=== PATIENT | female | born 1990 | race Caucasian/White ===

== ENCOUNTER → 2018-08-22 | Outpatient (CLI) | payer OTHER ==
[~2018-08-22] MED LIST: BUSP15TA; Benadryl IV; CARB25PO PO; CEFT1VIA; CORTISOL MANAGER PO; ESCI20TA10 PO; ESCI5TAB PO; Ketamine PO; LIOT5TAB3 PO; LORA1TAB PO; Magnesium IV; Normal Saline IV; OLAN5TAB3 PO; ONDA4SOL2; OXYC-306 PO; PRAZ600T2 PO; PROC5TAB2 PO; SEPTRA; THYROID ARMOUR PO; URSO300C12; [UNRECOGNIZED DRUG - OTHER]; [UNRECOGNIZED DRUG - OTHER] PO
[2018-08-22 09:16] LABS: BASOPHILS # (AUTO) 0.02 x10^3/uL (0-0.1); BASOPHILS % (AUTO) 0 % (0-1); EOSINOPHILS # (AUTO) 0.07 x10^3/uL (0-0.4); EOSINOPHILS % (AUTO) 2 % (1-7); LYMPHOCYTES # (AUTO) 1.27 x10^3/uL (1-3.4); LYMPHOCYTES % (AUTO) 26 % (22-44); MD NO; MEAN CORPUSCULAR HGB CONC 34.8 g/dL (32.4-35.8); MEAN CORPUSCULAR VOLUME 91.9 fL (80-100); MEAN PLATELET VOLUME 8.1 fL (7.4-10.4); MONOCYTES # (AUTO) 0.32 x10^3/uL (0.2-0.8); MONOCYTES % (AUTO) 7 % (2-9); NEUTROPHILS # (AUTO) 3.24 x10^3/uL (1.8-6.8); NEUTROPHILS % (AUTO) 66 % (42-75); PLATELET COUNT 248 x10^3/uL (130-400); RED BLOOD COUNT 4.77 x10^6/uL (3.82-5.3); RED CELL DISTRIBUTION WIDTH 11.9 % (9.6-15.2)
[2018-08-22 09:28] LABS: ALANINE AMINOTRANSFERASE 23 U/L (12-78); ALBUMIN 4.1 g/dL (3.4-5.0); ANION GAP 4 mmol/L (5-15); C-REACTIVE PROTEIN, QUANT 0.03 mg/dL (0.02-0.49); CALCIUM 8.9 mg/dL (8.5-10.1); CHLORIDE 107 mmol/L (98-107); CREATININE 0.85 mg/dL (0.55-1.02)
[2018-08-22 09:38] LABS: ALKALINE PHOSPHATASE 72 U/L (45-117); BILIRUBIN,TOTAL 0.4 mg/dL (0.2-1.0); TOTAL PROTEIN 7.7 g/dL (6.4-8.2)
== END | disposition home or self-care (01) ==
LOC: LAB 08:40
PROVIDERS: ATTEND Chiropractor
DX: A69.20 Lyme disease, unspecified (principal)
CPT/HCPCS: 36415; 80053; 82306; 82728; 84439; 84443; 84480; 84481; 85025; 86140; 86376; 86800

== ENCOUNTER 2019-03-03 08:57 | Outpatient (CLI) | payer OTHER | END 2019-03-03 23:59 | disposition home or self-care (01) | LOC: CARD 08:57 | PROVIDERS: ATTEND Nurse Practitioner Family | DX: G56.01 Carpal tunnel syndrome, right upper limb (principal); E06.3 Autoimmune thyroiditis; G61.81 Chronic inflammatory demyelinating polyneuritis | CPT/HCPCS: 95886; 95908 ==

== ENCOUNTER → 2019-10-30 | Outpatient (CLI) | payer OTHER ==
[~2019-10-30] MED LIST changes: +LIOT5TAB11 PO; -LIOT5TAB3 PO
== END | disposition home or self-care (01) ==
LOC: CVU 06:32
PROVIDERS: ATTEND Internal Medicine Cardiovascular Disease
DX: R06.02 Shortness of breath (principal)
CPT/HCPCS: 0399T; 93306

== ENCOUNTER 2019-11-06 08:52 | Outpatient (CLI) | payer OTHER ==
[2019-11-06 09:21] LABS: ALANINE AMINOTRANSFERASE 27 U/L (12-78); ALBUMIN 3.8 g/dL (3.4-5.0); ANION GAP 5 mmol/L (5-15); CALCIUM 8.5 mg/dL (8.5-10.1); CHLORIDE 108 mmol/L (98-107); CHOLESTEROL, TOTAL 129 mg/dL (140-239); CREATININE 0.99 mg/dL (0.55-1.02)
[2019-11-06 09:26] LABS: BASOPHILS # (AUTO) 0.02 x10^3/uL (0-0.1); BASOPHILS % (AUTO) 0 % (0-1); EOSINOPHILS # (AUTO) 0.05 x10^3/uL (0-0.4); EOSINOPHILS % (AUTO) 1 % (1-7); LYMPHOCYTES # (AUTO) 1.31 x10^3/uL (1-3.4); LYMPHOCYTES % (AUTO) 21 % (22-44); MD NO; MEAN CORPUSCULAR HEMOGLOBIN 31.6 pg (27.0-34.8); MEAN CORPUSCULAR HGB CONC 33.9 g/dL (32.4-35.8); MEAN CORPUSCULAR VOLUME 93.2 fL (80-100); MEAN PLATELET VOLUME 7.9 fL (7.4-10.4); MONOCYTES # (AUTO) 0.31 x10^3/uL (0.2-0.8); MONOCYTES % (AUTO) 5 % (2-9); NEUTROPHILS # (AUTO) 4.48 x10^3/uL (1.8-6.8); NEUTROPHILS % (AUTO) 73 % (42-75); PLATELET COUNT 251 x10^3/uL (130-400); RED BLOOD COUNT 4.56 x10^6/uL (3.82-5.3); RED CELL DISTRIBUTION WIDTH 12.1 % (9.6-15.2)
[2019-11-06 09:29] LABS: ALKALINE PHOSPHATASE 56 U/L (45-117); BILIRUBIN,TOTAL 0.6 mg/dL (0.2-1.0); CHOL/HDL RATIO 2.2; FREE T4 (FREE THYROXINE) 0.98 ng/dL (0.76-1.46); HDL CHOL % 45 % (28-40); HDL CHOLESTEROL (DIRECT) 58 mg/dL (40-60); LDL CHOLESTEROL,CALCULATED 62 mg/dL (54-169); LDL/HDL RATIO 1.1 (0.5-3.0); TRIGLYCERIDES 46 mg/dL (50-200); VLDL CHOLESTEROL 9 mg/dL (0-25)
== END 2019-11-06 23:59 | disposition home or self-care (01) ==
LOC: LAB 08:52
PROVIDERS: ATTEND Nurse Practitioner Family
DX: Z00.8 Encounter for other general examination (principal); R53.83 Other fatigue
CPT/HCPCS: 36415; 80053; 80061; 82306; 84439; 84443; 84480; 85025

== ENCOUNTER → 2020-09-23 | Outpatient (CLI) | payer OTHER ==
[~2020-09-23] MED LIST changes: +FEXO180T72 PO; +FLUT9.9S NAS; +ST JOHN S WORT PO; +ashwagandha PO; +omega PO; +oxybutynin PO; +vitamin D PO
== END | disposition home or self-care (01) ==
LOC: STAR 13:55
PROVIDERS: ATTEND Orthopaedic Surgery
DX: Z20.828 Contact with and (suspected) exposure to other viral communicable diseases (principal); G56.21 Lesion of ulnar nerve, right upper limb; M79.641 Pain in right hand
CPT/HCPCS: 87635

== ENCOUNTER 2020-09-27 09:56 | Day surgery (SDC) | payer OTHER ==
[~2020-09-27] VITALS: Ht 152.4 cm; Wt 61.6 kg
[2020-09-27 10:23] VITALS: BP 128/81
[2020-09-27] MEDS ORDERED: LACTATED RINGERS 1,000 ML IV SCH (10:30)
[2020-09-27 10:45] LABS: HCG UR SG 1.011 (1.003-1.030)
[2020-09-27] MEDS ORDERED: FENTANYL PF 250 MCG/5ML ONE (10:45)
[2020-09-27] MEDS ORDERED: MIDAZOLAM 1 MG/ML, 2ML ONE (10:45)
[2020-09-27] MEDS ORDERED: CEFAZOLIN 1,000 MG ONE (10:46)
[2020-09-27] MEDS ORDERED: DEXAMETHASONE 4 MG/ML, 1ML ONE (10:46)
[2020-09-27] MEDS ORDERED: ONDANSETRON 2MG/ML, 2ML ONE (10:46)
[2020-09-27] MEDS ORDERED: PROPOFOL 10 MG/ML, 20ML ONE (10:46)
[2020-09-27] MEDS ORDERED: BUPIVACAINE/PF 0.5% ONE (11:19)
[2020-09-27] MEDS ORDERED: SCOPOLAMINE 1MG PATCH TD ONE (12:00)
[2020-09-27] MEDS ORDERED: ACETAMINOPHEN 325 MG TABLET PO PRN (13:00)
[2020-09-27] MEDS ORDERED: HALOPERIDOL 5 MG/ML IV PRN (13:00)
[2020-09-27] MEDS ORDERED: FENTANYL PF 100 MCG/2ML IV PRN (13:00)
[2020-09-27] MEDS ORDERED: hydrALAzine 20 MG/ML, 1ML IV PRN (13:00)
[2020-09-27] MEDS ORDERED: PROMETHAZINE 25 MG/ML, 1ML IVPush PRN (13:00)
[2020-09-27] MEDS ORDERED: morphine SULFATE 10 MG/ML, 1ML IVPush PRN (13:00)
[2020-09-27] MEDS ORDERED: MEPERIDINE/PF 25MG/0.5ML IVPush PRN (13:00)
[2020-09-27] MEDS ORDERED: OXYcodone 5 MG/5 ML ORAL.SOL UDC PO PRN (13:00)
[2020-09-27] MEDS ORDERED: LABETALOL 5MG/ML, 20ML IV PRN (13:00)
[2020-09-27] MEDS ORDERED: ACETAMINOPHEN 650 MG/20.3 ML UDC ONE (13:03)
[2020-09-27] MEDS ORDERED: OXYcodone 5 MG/5 ML ORAL.SOL UDC ONE (13:03)
[2020-09-27] MEDS ORDERED: HYDROmorphone 2 MG/ML, 1ML ONE (13:04)
[2020-09-27] MEDS: HYDROmorphone 1 MG/ML, 1ML INJ IVPush PRN ×4 (13:12→13:42)
== END 2020-09-27 15:15 | disposition home or self-care (01) ==
LOC: OUT 09:56
PROVIDERS: ATTEND Orthopaedic Surgery
DX: G56.21 Lesion of ulnar nerve, right upper limb (principal); M79.641 Pain in right hand; Z88.8 Allergy status to other drugs, medicaments and biological substances; Z88.5 Allergy status to narcotic agent; Z88.1 Allergy status to other antibiotic agents; Z88.2 Allergy status to sulfonamides; Z91.012 Allergy to eggs; Z91.048 Other nonmedicinal substance allergy status; Z79.899 Other long term (current) drug therapy
CPT/HCPCS: 24359; 64718; 81025; J0690; J1100; J1170; J2250; J2405; J2704; J3010

== ENCOUNTER 2021-02-17 09:31 | Outpatient (CLI) | payer OTHER ==
[~2021-02-17 09:31] MED LIST changes: -ESCI5TAB PO; +ESCI5TAB8 PO; -OXYC-306 PO; +OXYC1TAB16 PO
[2021-02-17 10:14] LABS: BASOPHILS % (AUTO) 1 % (0-1); EOSINOPHILS % (AUTO) 1 % (1-7); LYMPHOCYTES % (AUTO) 22 % (22-44); MEAN CORPUSCULAR HEMOGLOBIN 31.7 pg (27.0-34.8); MEAN CORPUSCULAR HGB CONC 34.3 g/dL (32.4-35.8); MEAN PLATELET VOLUME 7.8 fL (7.4-10.4); MONOCYTES % (AUTO) 5 % (2-9); NEUTROPHILS % (AUTO) 72 % (42-75); PLATELET COUNT 240 x10^3/uL (130-400); RED BLOOD COUNT 4.53 x10^6/uL (3.82-5.3); RED CELL DISTRIBUTION WIDTH 12.4 % (9.6-15.2)
[2021-02-17 10:25] LABS: ANION GAP 5 mmol/L (5-15); C-REACTIVE PROTEIN, QUANT 0.05 mg/dL (0.02-0.49); CHLORIDE 107 mmol/L (98-107); GAMMA GLUTAMYL TRANSPEPTIDASE 13 U/L (5-55)
[2021-02-17 10:52] LABS: % IRON SATURATION 43 % (20-55); ALANINE AMINOTRANSFERASE 25 U/L (12-78); ALKALINE PHOSPHATASE 58 U/L (45-117); BILIRUBIN,TOTAL 0.5 mg/dL (0.2-1.0); CREATININE 0.84 mg/dL (0.55-1.02); FREE T4 (FREE THYROXINE) 0.93 ng/dL (0.76-1.46); IRON LEVEL 125 mcg/dL (50-170); TOTAL IRON BINDING CAPACITY 288 mcg/dL (250-450); TOTAL PROTEIN 7.2 g/dL (6.4-8.2)
== END 2021-02-17 23:59 | disposition home or self-care (01) ==
LOC: LAB 09:31
PROVIDERS: ATTEND Nurse Practitioner Family
DX: Z00.01 Encounter for general adult medical examination with abnormal findings (principal); E55.9 Vitamin D deficiency, unspecified; R19.7 Diarrhea, unspecified; F41.9 Anxiety disorder, unspecified; E23.3 Hypothalamic dysfunction, not elsewhere classified; N94.6 Dysmenorrhea, unspecified
CPT/HCPCS: 36415; 80053; 82306; 82525; 82607; 82728; 82747; 82977; 83036; 83090; 83525; 83540; 83550; 83655; 83735; 83825; 83921; 84207; 84252; 84255; 84425; 84439; 84443; 84481; 84482; 84630; 85025; 85651; 86038; 86140; 86376; 86800